=== PATIENT | male | born 1945 | race Two or more races ===

== ENCOUNTER 2023-11-14 10:17 | Emergency (ER) | payer SELFPAY ==
[2023-11-14 10:42] VITALS: BP 130/72; PULSE 83; RESP 18; TEMP 98.4; BMI 34.0
[2023-11-14] MEDS ORDERED: ACETAMINOPHEN 500 MG TABLET (FP) ONE (12:13)
[2023-11-14] MEDS: ACETAMINOPHEN 500 MG TABLET (FP) PO ONE (12:16)
== END 2023-11-14 17:05 | disposition home or self-care (01) ==
LOC: JER 10:17
DX: M25.551 Pain in right hip (principal); M25.552 Pain in left hip; M25.561 Pain in right knee; M25.562 Pain in left knee; M25.571 Pain in right ankle and joints of right foot; M25.572 Pain in left ankle and joints of left foot; R07.9 Chest pain, unspecified; G89.29 Other chronic pain
CPT/HCPCS: 71045-TC-FY; 73521-TC-FY; 93005; 93010; 99284-25